=== PATIENT | male | born 1980 | race Caucasian/White ===

== ENCOUNTER 2023-10-04 06:34 | Outpatient (CLI) | payer OTHER, SELFPAY ==
--- NOTE | ~2023-10-04 | XR_ITS ---
EXAMINATION: XR shoulder RT min 2V DATE: 10/04/2023 18:06 INDICATION: Right shoulder pain. TECHNIQUE: 4 views of right shoulder were obtained. COMPARISON: None. FINDINGS: Bone alignment is normal. No fracture. Joint spaces are normal. IMPRESSION: 1. Normal right shoulder. Reviewed, dictated and finalized at location A. IMPRESSION: 1. Normal right shoulder.
[2023-10-04 07:09] LABS: Basophils Percent Auto 0.5 % (0.2-1.2); Eosinophils Absolute Auto 0.1 K/mm3 (0-0.3); Eosinophils Percent Auto 1.8 % (0-4.4); Hematocrit 42.8 % (42.0-52.0); Hemoglobin 14.8 g/dL (14.0-18.0); Immature Granulocyte Absolute 0.03 K/mm3 (0.00-0.031); Immature Granulocyte Percent A 0.4 % (0-0.5); Lymphocytes Absolute Auto 2.63 K/mm3 (0.9-3.2); Lymphocytes Percent Auto 33.5 % (18.3-44.2); Mean Corpuscular HGB Conc 34.6 g/dl (32-36); Mean Corpuscular Hemoglobin 30.5 pg (26-34); Mean Corpuscular Volume 88.2 fl (80-100); Monocytes Absolute Auto 0.6 K/mm3 (0.1-0.6); Monocytes Percent Auto 7.3 % (2.6-8.5); Neutrophils Absolute Auto 4.5 K/mm3 (1.3-6.7); Neutrophils Percent Auto 56.5 % (45.5-73.1); Platelet Count Result 277 k/mm3 (150-375); Red Blood Count 4.85 M/mm3 (4.6-6.20); Red Cell Distribution Width 12.1 % (11.5-14.5); White Blood Count 7.9 K/mm3 (4.5-10.0)
[2023-10-04 07:18] LABS: Alanine Aminotransferase 38 U/L (6-50); Albumin Level 4.3 g/dL (3.5-5.1); Alkaline Phosphatase 65 U/L (38-126); Anion Gap 6 mmol/L (4-12); Aspartate Amino Transferase 26 U/L (17-59); Bilirubin,Total 0.9 mg/dL (0.2-1.3); Blood Urea Nitrogen 16 mg/dL (9-20); Calcium 8.8 mg/dL (8.4-10.2); Carbon Dioxide 27 mmol/L (22-30); Chloride 108 mmol/L (98-107); Cholesterol 156 mg/dL (0-200); Estimated Glomerular Filt Rate > 60; Glucose 109 mg/dL (65-110); HDL Direct 32 mg/dL; Sodium 141 mmol/L (137-145); Triglycerides 301 mg/dL (<150)
[2023-10-04 07:29] LABS: LDL Cholesterol Direct 87 mg/dL
[2023-10-04 07:39] LABS: Hemoglobin A1C 5.3 % (<5.7)
[2023-10-04 07:47] LABS: Creatinine Urine 187.2 mg/dL
[2023-10-04 07:50] LABS: MALB Creatinine Ratio 3.4 mg/g (0-30); Microalbumin Urine Random 6.4 mg/L (0-16.7)
[2023-10-09 11:48] LABS: Testosterone Free 35.2 pg/mL (35.0-155.0); Testosterone Total 230 ng/dL (250-1100)
== END 2023-10-04 06:35 | disposition home or self-care (01) ==
PROVIDERS: PCP Clinical Nurse Specialist; Visit Provider Clinical Nurse Specialist
DX: E78.5 Hyperlipidemia, unspecified (principal); R53.83 Other fatigue; R73.9 Hyperglycemia, unspecified; Z13.29 Encounter for screening for other suspected endocrine disorder; M25.511 Pain in right shoulder
CPT/HCPCS: 36415; 73030; 80053; 80061; 82043; 82607; 83036; 84402; 84403; 85025

== ENCOUNTER 2023-12-25 06:59 | Outpatient (CLI) | payer OTHER, SELFPAY ==
[2023-12-25 08:57] LABS: Cholesterol 166 mg/dL (0-200); HDL Direct 35 mg/dL; Triglycerides 281 mg/dL (<150)
[2023-12-25 09:08] LABS: LDL Cholesterol Direct 95 mg/dL
[2023-12-25 14:55] LABS: Prostate Specific Antigen 1.7 ng/mL (< OR = 4.0)
[2023-12-28 01:23] LABS: FSH 10.7 mIU/mL (1.4-12.8); LH 3.3 mIU/mL (1.5-9.3)
[2024-01-01 14:27] LABS: Testosterone Free 68.6 pg/mL (35.0-155.0); Testosterone Total 360 ng/dL (250-1100)
[2024-01-02 23:14] LABS: Estradiol, Ultrasensitive 25 pg/mL (< OR = 29)
== END 2023-12-25 07:00 | disposition home or self-care (01) ==
PROVIDERS: PCP Clinical Nurse Specialist; Visit Provider Clinical Nurse Specialist
DX: E78.5 Hyperlipidemia, unspecified (principal); R53.83 Other fatigue; Z12.5 Encounter for screening for malignant neoplasm of prostate
CPT/HCPCS: 36415; 80061; 82670; 83001; 83002; 84153; 84402; 84403; G0103

== ENCOUNTER 2025-02-16 11:42 | Outpatient (CLI) | payer OTHER, SELFPAY ==
[2025-02-16 13:02] LABS: Add Urine Microscopic? NO; Appearance Urine Clear (Clear); Glucose Urine UA Negative (Negative); Hematocrit 47.5 % (42.0-52.0); Hemoglobin 16.0 g/dL (14.0-18.0); Immature Granulocyte Percent A 0.3 % (0-0.5); Leukocyte Esterase Ur Negative LEU/UL (Negative); Lymphocytes Absolute Auto 2.40 K/mm3 (0.9-3.2); Mean Corpuscular HGB Conc 33.7 g/dl (32-36); Mean Corpuscular Hemoglobin 30.7 pg (26-34); Mean Corpuscular Volume 91.0 fl (80-100); Nitrate Urine Negative (Negative); Nucleated Red Blood Cells Absolute Auto 0.000 K/mm3 (0.0-0.012); Nucleated Red Blood Cells Perc 0.0 % (0.0-0.2); Platelet Count Result 300 k/mm3 (150-375); Red Blood Count 5.22 M/mm3 (4.6-6.20); Specific Grav Ur 1.018 (1.001-1.035); White Blood Count 7.8 K/mm3 (4.5-10.0)
[2025-02-16 13:23] LABS: Alanine Aminotransferase 36 U/L (6-50); Albumin Level 4.6 g/dL (3.5-5.1); Alkaline Phosphatase 58 U/L (38-126); Anion Gap 6 mmol/L (4-12); Aspartate Amino Transferase 64 U/L (17-59); Bilirubin,Total 0.8 mg/dL (0.2-1.3); Blood Urea Nitrogen 12 mg/dL (9-20); CRP < 0.5 mg/dL (<1.0); Calcium 9.3 mg/dL (8.4-10.2); Carbon Dioxide 32 mmol/L (22-30); Chloride 101 mmol/L (98-107); Estimated Glomerular Filt Rate > 60; Glucose 100 mg/dL (65-110); Magnesium 1.9 mg/dL (1.6-2.3); Potassium 4.7 mmol/L (3.4-5.0); Sodium 139 mmol/L (137-145); Total Protein 7.4 g/dL (6.3-8.2)
[2025-02-16 13:56] LABS: Thyroid Stimulating Hormone 3.220 uIU/mL (0.465-4.680)
[2025-02-16 14:15] LABS: Vitamin B12 674.0 pg/mL (239-931)
[2025-02-16 17:07] LABS: Hemoglobin A1C 5.5 % (<5.7)
== END 2025-02-16 11:43 | disposition home or self-care (01) ==
LOC: ANHGOSHLAB 11:43
PROVIDERS: PCP Clinical Nurse Specialist; Visit Provider Clinical Nurse Specialist
DX: R20.0 Anesthesia of skin (principal); R20.2 Paresthesia of skin; R53.83 Other fatigue; R73.01 Impaired fasting glucose
CPT/HCPCS: 36415; 80053; 81003; 82607; 83036; 83735; 84207; 84443; 85025; 85652; 86140